=== PATIENT | male | born 1990 | race Caucasian/White ===

== ENCOUNTER 2022-12-23 10:47 | Emergency (ER) | payer MEDICAID ==
[~2022-12-23] VITALS: Ht 172.7 cm; Wt 75.0 kg
[2022-12-23 11:00] VITALS: BP 115/73
[2022-12-23] MEDS ORDERED: METHOCARBAMOL 750MG TABLET PO SCH (11:00)
[2022-12-23] MEDS ORDERED: ACETAMINOPHEN 325MG TABLET PO ONE (11:00)
[2022-12-23] MEDS ORDERED: KETOROLAC 60MG/2ML VIAL IM ONE (11:00)
[2022-12-23] MEDS ORDERED: LIDOCAINE 5% PATCH TOP SCH (11:00)
[2022-12-23] MEDS ORDERED: ACETAMINOPHEN 325MG TABLET PO SCH (12:45)
[2022-12-23] MEDS ORDERED: KETOROLAC 60MG/2ML VIAL IM SCH (12:45)
[2022-12-23] MEDS ORDERED: METH-653 MT (13:15)
[2022-12-23] MEDS ORDERED: TOPUD PO (13:15)
[2022-12-23] MEDS ORDERED: LIDO1ADH23 TP (13:15)
[2022-12-23] MEDS ORDERED: IBUP-2028 MT (13:15)
== END 2022-12-23 13:31 | disposition home or self-care (01) ==
LOC: ER 10:47
DX: S39.012A Strain of muscle, fascia and tendon of lower back, initial encounter (principal); X58.XXXA Exposure to other specified factors, initial encounter; Y93.89 Activity, other specified; Y92.89 Other specified places as the place of occurrence of the external cause; Y99.8 Other external cause status
CPT/HCPCS: 72100; 96372; 99283; J1885; Z7610